=== PATIENT | female | born 2000 | race Caucasian/White ===

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

== ENCOUNTER 2021-02-24 21:58 | Emergency (ER) | payer BC ==
--- NOTE | 2021-02-24 22:11 | EDM.PDOC ---
ED HPI GENERAL MEDICAL PROBLEM - General Stated Complaint: BACK PAIN Time Seen by Provider: 02/24/21 22:07 Source of Information: Reports: Patient History Limitations: Reports: No Limitations - History of Present Illness INITIAL COMMENTS - FREE TEXT/NARRATIVE: 20-year-old female who presents to the emergency department complaining of severe pain in her lower back with muscle spasm going up her back. These pains began about 2-3 days ago and have progressively worsened over time. She states they really get worse after she tried to lift a 55 his TV yesterday and she had a pulling sensation in her back and since then she has had spasm in her back that is in her lower back but seems to go into her left hip and be more on the left side. She reports the pain as a 10/10. She finds it difficult to ambulate and bend and twist. She has no abdominal pain. There has been no nausea or vomiting. There was no direct trauma to her back. She does have history of chronic back pain and is had problems similar to this in the past but not as severe as present. She has had no bowel or bladder control problems. There is no leg weakness. There are no other associated signs or symptoms. There are no other modifying factors. 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 SPECIALIST: Reports: Other (see below) (She has taken nothing since this previous morning.) Left Lower Back Pain Score (Numeric/FACES): 10 - Related Data Allergies Allergy/AdvReac Type Severity Reaction Status Date / Time amoxicillin trihydrate Allergy Hives Verified 12/03/20 07:55 [From Augmentin] codeine Allergy Hives Verified 12/03/20 07:55 potassium clavulanate Allergy Hives Verified 12/03/20 07:55 [From Augmentin] Sulfa (Sulfonamide Allergy Hives Verified 12/03/20 07:55 Antibiotics) Home Meds: Home Meds Cyclobenzaprine [Flexeril] 10 mg PO TID PRN #15 tab 02/24/21 [Rx] Past Medical History Other HEENT History: 2 upper teeth wired together Respiratory History: Reports: None Musculoskeletal History: Reports: Back Pain, Chronic Psychiatric History: Reports: Anxiety, Depression Other Psychiatric History: Takes medications. 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.) ED ROS GENERAL - Review of Systems Review Of Systems: See Below Constitutional: Denies: Fever, Chills HEENT: Denies: Throat Pain, Vision Change Respiratory: Denies: Shortness of Breath, Cough Cardiovascular: Denies: Chest Pain, Lightheadedness GI/Abdominal: Denies: Abdominal Pain, Nausea, Vomiting Musculoskeletal: Reports: Back Pain Skin: Denies: Diaphoresis, Rash Neurological: Denies: Dizziness, Headache Hematologic/Lymphatic: Denies: Easy Bleeding, Easy Bruising ED EXAM,LOWER BACK PAIN/INJURY - Physical Exam Exam: See Below Exam Limited By: No Limitations General Appearance: Alert, Moderate Distress (Appears in acute pain.), Obese Eye Exam: Bilateral Eye: EOMI, Normal Inspection, PERRL Ears: Normal External Exam, Hearing Grossly Normal Nose: Normal Inspection, Normal Mucosa, No Blood Throat/Mouth: Normal Voice, No Airway Compromise Head: Atraumatic, Normocephalic Neck: Normal Inspection, Supple, Non-Tender, Full Range of Motion Respiratory/Chest: No Respiratory Distress, Lungs Clear, Normal Breath Sounds, No Accessory Muscle Use, Chest Non-Tender Cardiovascular: Normal Peripheral Pulses, Regular Rate, Rhythm, No Murmur GI/Abdominal: Normal Bowel Sounds, Soft, Non-Tender, No Mass Back Exam: Muscle Spasm, Paraspinal Tenderness Extremities: Normal Inspection, Normal Range of Motion, Non-Tender, No Pedal Edema, Normal Capillary Refill Neurological: Alert, Normal Mood/Affect, Normal Dorsiflexion, CN II-XII Intact, Normal Plantar Flexion, No Motor/Sensory Deficits, Oriented x 3 Psychiatric: Anxious Skin Exam: Warm, Dry, Intact, Normal Color, No Rash Course - Vital Signs Last Recorded V/S: Last Vital Signs Temp 37.5 C 02/24/21 22:00 Pulse 104 H 02/24/21 22:00 Resp 20 02/24/21 22:00 BP 166/76 H 02/24/21 22:00 Pulse Ox 99 02/24/21 22:00 - Orders/Labs/Meds Meds: Medications Discontinued Medications Generic Name Dose Route Start Last Admin Trade Name Ab PRN Reason Stop Dose Admin Diazepam 5 mg 02/24/21 22:25 02/24/21 22:52 Diazepam 10 Mg/2 Ml Syringe IM 02/24/21 22:26 5 mg ONETIME ONE Administration Ketorolac Tromethamine 30 mg 02/24/21 22:25 02/24/21 22:52 Ketorolac 30 Mg/Ml Sdv IM 02/24/21 22:26 30 mg ONETIME ONE Administration - Re-Assessments/Exams Free Text/Narrative Re-Assessment/Exam: 02/24/21 22:20: Young female with vaginal lower back pain that has been worsening over the past 3 days and was exacerbated while moving yesterday. She has quite a bit of muscle spasm in her back. There is no leg weakness. There are no concerning signs or symptoms. She will be given Toradol 30 mg IM and Valium 5 mg IM. I will prescribe her Flexeril 10 mg 3 times a day when necessary and she can take ibuprofen and Tylenol for her pain as needed. I will also give her back stretching exercises sheet. I will give her off work until 03/01/2021. Departure - Departure Time of Disposition: 22:45 Disposition: Home, Self-Care 01 Condition: Good (Stable) Clinical Impression: Spasm of muscle of lower back Lumbar back sprain Qualifiers: Encounter type: initial encounter Qualified Code(s): S33.5XXA - Sprain of ligaments of lumbar spine, initial encounter - Discharge Information Prescriptions: Cyclobenzaprine [Flexeril] 10 mg PO TID PRN #15 tab PRN Reason: Muscle pain and muscle spasm Instructions: Back Exercises, [id number], Lumbosacral Strain Referrals: PCP,None [Primary Care Provider] - Forms: ED Return to Work/School Form Additional Instructions: You appear to have a strain of your lower back with muscle spasm. You can take ibuprofen and Tylenol for your pain. You should apply moist heat to the lower back. You should begin doing the back stretching exercises. Walk around as tolerated. Follow-up at the clinic if your symptoms are not improving next week. No work until 03/01/2021. Medications as prescribed (Flexeril 10 mg). I sent this prescription electronically to [facility] in [facility]. Back to the emergency department for bowel or bladder control problems, fever, leg weakness or any other concerning signs or symptoms. Sepsis Event Note (ED) - Evaluation Sepsis Screening Result: No Definite Risk
[2021-02-24] MEDS ORDERED: Ketorolac 30 MG/ML SDV IM ONE (22:25)
== END 2021-02-24 23:20 | disposition home or self-care (01) ==
LOC: FB.ED 21:58
DX: S33.5XXA Sprain of ligaments of lumbar spine, initial encounter (principal); Z88.0 Allergy status to penicillin; Z88.5 Allergy status to narcotic agent; Z88.2 Allergy status to sulfonamides; X50.0XXA Overexertion from strenuous movement or load, initial encounter
CPT/HCPCS: 96372; 99283; J1885; J3360

== ENCOUNTER 2022-03-16 00:09 | Emergency (ER) | payer BC ==
[2022-03-16] MEDS ORDERED: traMADol 50 MG Tab PO ONE (00:10)
== END 2022-03-16 01:20 | disposition home or self-care (01) ==
LOC: FB.ED 00:09
DX: S99.922A Unspecified injury of left foot, initial encounter (principal); Z88.8 Allergy status to other drugs, medicaments and biological substances; Z88.5 Allergy status to narcotic agent; Z88.2 Allergy status to sulfonamides; W22.8XXA Striking against or struck by other objects, initial encounter
CPT/HCPCS: 73630; 99283; A9270